=== PATIENT | female | born 1985 | race Caucasian/White ===

== ENCOUNTER 2017-08-26 12:18 | Emergency (ER) | payer OTHER ==
[2017-08-26 12:49] VITALS: BP 144/93
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
== END 2017-08-26 13:10 | disposition home or self-care (01) ==
LOC: UCCORT 12:18
DX: T22.011A Burn of unspecified degree of right forearm, initial encounter (principal); L03.113 Cellulitis of right upper limb; X19.XXXA Contact with other heat and hot substances, initial encounter; Y93.G3 Activity, cooking and baking; Y92.9 Unspecified place or not applicable
CPT/HCPCS: 99212; G0463